=== PATIENT | female | born 1970 | race American Indian/Alaskan Native ===

== ENCOUNTER 2017-07-07 07:21 | Outpatient (CLI) | payer OTHER ==
--- NOTE | 2017-07-07 08:14 | XRay Report ---
XRAY LEFT KNEE 4 THREE VIEWS: 07/07/17 CLINICAL: Left knee pain. FINDINGS: No fracture or dislocation. Mild osteopenia. The medial and lateral joint spaces are normal. Tiny patellofemoral osteophytes.No joint effusion.Normal soft tissues. IMPRESSION: Very mild patellofemoral joint arthritis.
== END 2017-07-07 07:22 | disposition home or self-care (01) ==
LOC: SPVIMAG 07:21
PROVIDERS: ATTEND Orthopaedic Surgery
DX: M17.12 Unilateral primary osteoarthritis, left knee (principal)